=== PATIENT | female | born 1965 | race Caucasian/White ===

== ENCOUNTER 2016-11-03 19:58 | Emergency (ER) | payer OTHER ==
--- NOTE | 2016-11-04 02:38 | ED CLINICAL REPORT ---
Clinical Report - Physicians/Mid Levels [facility] [address] [place] [address] 11/03/2016 19:59 Patient: ROBERT ROMAN Time Seen: 20:57 Nov 03 2016. Arrived- By private vehicle. Historian- patient. CPT: ER phys charges level 5 plus (#[id number]). EKG interpretation (#[id number]). HISTORY OF PRESENT ILLNESS Chief Complaint: sent by due to hypokalemia. ABNORMAL POTASSIUM (2.1). This started today and is still present. At its maximum, severity described as severe. When seen in the E.D., severity described as severe. Modifying factors. Not worsened by anything. Not relieved by anything. The patient has had fatigue. Similar symptoms previously: None. Recent medical care: The patient was seen recently at another facility in the office. REVIEW OF SYSTEMS No fever, sore throat, sinus drainage, nasal congestion or cough. No difficulty breathing, chest pain, abdominal pain, nausea or vomiting. No diarrhea, black stools, bloody stools, difficulty with urination or skin rash. No back pain, headache or blackouts. No difficulty with ambulation. All systems otherwise negative, except as recorded above. PAST HISTORY Obesity. SAD. Diverticulitis. IBS. Pneumonia. Back Pain. Arthritis. Hypertension. ADDITIONAL SURGERIES: Bilateral ankle surgery-reconstruction. . Hernia Repair. Left finger surgery. Left surgery . Rotator Cuff Surgery. Shoulder Surgery. Tubal Ligation. Medications: Potassium Chloride Oral. Vitamin D Oral. Multi Vitamin Daily Oral. Metoprolol Tartrate Oral (Tablet 50 mg) 1 tablet, bid. Lasix Oral. Allergies: NSAIDs. SOCIAL HISTORY Never smoker. Occasional alcohol use. No drug use. ADDITIONAL NOTES The nursing notes have been reviewed. PHYSICAL EXAM Vital Signs: 11/03/2016 21:06 BP: 142/82. HR: 88. RR: 14. O2 saturation: 100%. Temp: 98.3 F. Pain level now: 0/10. Appearance: Alert. No acute distress. Eyes: Pupils equal, round and reactive to light. Eyes normal inspection. ENT: Ears normal. Nose normal. Pharynx normal. Neck: Normal inspection. Neck supple. CVS: Normal heart rate and rhythm. Heart sounds normal. Pulses normal. Respiratory: No respiratory distress. Breath sounds normal. Chest nontender. Abdomen: Soft and nontender. Bowel sounds normal. No mass. Back: Normal inspection. No CVA tenderness. Skin: Skin warm. Normal skin color. No rash. Extremities: Extremities exhibit normal ROM. No lower extremity edema. Neuro: Oriented X 3. No motor deficit. No sensory deficit. Reflexes normal. LABS, X-RAYS, AND EKG EKG: Normal sinus rhythm. Frequent unifocal wide-complex ectopic beats. Premature ventricular contractions. Normal P waves. Normal QRS complex. Non-specific ST segment / T wave abnormalities. Prior EKG unavailable. The study has been interpreted contemporaneously. The study has been independently viewed by me. The EKG appears to be a good tracing. Laboratory Tests: [id number]: (KISHORE: 11/04/2016 01:50) ( [facility] 11/04/2016 02:13) Final results Test Result Flag Units (Reference) POTASSIUM 2.6 #*L mmol/L (3.5-5.1) CRITICAL RESULTS CALLEDCalled to [facility] 11/04/16 0212Were 2 patient identifiers used? YWas the result read back? Y MAGNESIUM 2.6 H mg/dL (1.8-2.4) UA-Culture if indicated: (KISHORE: 11/03/2016 21:10) ( [facility] 11/[facility] 21:51) Final results Test Result Flag Units (Reference) URINE COLOR YELLOW URINE APPEARANCE CLEAR URINE GLUCOSE NEGATIVE (NEGATIVE) URINE BILIRUBIN NEGATIVE (NEGATIVE) URINE KETONE NEGATIVE (NEGATIVE) URINE SPECIFIC GRAVITY <= 1.005 L (1.010-1.030) URINE PH 6.0 (5.0-8.0) URINE PROTEIN NEGATIVE (NEGATIVE) URINE UROBILINOGEN 0.2 EU/dL (0.2-1.0) URINE NITRITE NEGATIVE (NEGATIVE) URINE BLOOD TRACE-LYSED (NEGATIVE) URINE LEUK ESTERASE NEGATIVE (NEGATIVE) URINE RBC RARE rbc/hpf (0-1) URINE WBC NONE SEEN wbc/hpf (0-1) URINE EPITHELIAL CELLS 1-3 EPI/hpf (0-5) URINE BACTERIA TRACE (<1+) (NONE SEEN) URINE COMMENT CULT NOT INDICATED URINE CULTURES ARE SET-UP BASED ON THE FOLLOWING CRITERIA:POSITIVE NITRITEPOSITIVE LEUKOCYTE ESTERASEGREATER THAN 10 WHITE BLOOD CELLSMODERATE (2+) OR GREATER BACTERIA CBC w Diff: (KISHORE: 11/03/2016 21:35) ( [facility] 11/03/2016 21:44) Final results Test Result Flag Units (Reference) WHITE BLOOD COUNT 10.9 K/uL (4.5-11.5) RED BLOOD COUNT 5.03 M/uL (4.00-5.20) HEMOGLOBIN 13.0 gm/dL (12.0-16.0) HEMATOCRIT 39.7 % (36.0-46.0) MEAN CELL VOLUME 79 L fL (80-100) MEAN CORPUSCULAR HGB 26 pg (26-34) MEAN CORPUSCULAR HGB CONC 33 g/dL (31-37) RED CELL DISTRIBUTION WIDTH 17.0 H % (11.6-14.8) PLATELET COUNT 340 K/uL (150-400) NEUTROPHIL % 67.3 % (50-75) LYMPH % 22.4 L % (25-40) MONO % 6.9 % (3-14) EOSINOPHIL % 2.4 % (0-4) BASOPHIL % 1.0 % (0-2) CMP: (KISHORE: 11/03/2016 21:35) ( [facility] 11/03/2016 22:17) Final results Test Result Flag Units (Reference) GLUCOSE 137 H mg/dL (70-110) BUN 24 H mg/dL (7-18) CREATININE 1.0 mg/dL (0.6-1.3) Estimated GFR >60 mL/min Estimated GFR- >60 mL/min Note: Persistent reduction over 3 months in eGFR<60 mL/min/1.73 m2 defines CKD. Patients with eGFR values>=60 mL/min/1.73 m2 may also have CKD if evidence ofpersistent proteinuria. Additional information may be foundat [email or web address].org. SODIUM 133 L mmol/L (136-145) POTASSIUM 1.8 *L mmol/L (3.5-5.1) CRITICAL RESULTS CALLEDCalled to MONET TABARES RN 11/03/16 2215Were 2 patient identifiers used? YWas the result read back? Y CHLORIDE 95 L mmol/L (98-107) CARBON DIOXIDE 33 H mmol/L (21-32) CALCIUM 9.2 mg/dL (8.5-10.1) TOTAL PROTEIN 7.3 g/dL (6.4-8.2) ALBUMIN 3.4 g/dL (3.3-5.0) BILIRUBIN, TOTAL 0.4 mg/dL (0.0-1.0) ALKALINE PHOSPHATASE 84 U/L (46-116) AST (SGOT) 46 H U/L (15-37) ALT (SGPT) 62 U/L (12-78) MAGNESIUM 1.7 L mg/dL (1.8-2.4) . PROGRESS AND PROCEDURES Course of Care: 23:17 11/03/16. Requesting her usual medications. Metoprolol 50 mg po Pt low on K+ due to diuretics. Discussed case with on-call health care provider, (Agustín: Recommends trying to replete KCL in ER and admit if it becomes difficult or prolonged.). Patient/family counseled. Disposition: Discharged. Condition: stable and improved. CLINICAL IMPRESSION Critical hypokalemia due to diuretics. Mildly low magnesium. INSTRUCTIONS (stop all diuretics for 3 days. Continue magnesium supplements.). Warnings: Further evaluation is necessary. GENERAL WARNINGS: Return or contact your physician immediately if your condition worsens or changes unexpectedly, if not improving as expected, or if other problems arise. Your Current Medications: STOP TAKING THE FOLLOWING MEDICATIONS: Lasix Oral. CONTINUE TAKING THE FOLLOWING MEDICATIONS: Metoprolol Tartrate Oral : Tablet 50 mg, 1 tablet bid. Multi Vitamin Daily Oral. Potassium Chloride Oral. Vitamin D Oral. Prescription Medications: KCL 20 meq po bid for a total of 5 doses. Follow-up: Follow up with your doctor Thursday in three days. Call for the next available appointment. Understanding of the discharge instructions verbalized by patient. (Electronically signed by Omar Pro MD 11/11/2016 0:10)
--- NOTE | 2016-11-04 02:38 | ED CLINICAL REPORT ---
Clinical Report - Physicians/Mid Levels [facility] [address] [place] [address] 11/03/2016 19:59 Patient: ROBERT ROMAN Time Seen: 20:57 Nov 03 2016. Arrived- By private vehicle. Historian- patient. CPT: ER phys charges level 5 plus (#[id number]). EKG interpretation (#[id number]). HISTORY OF PRESENT ILLNESS Chief Complaint: sent by due to hypokalemia. ABNORMAL POTASSIUM (2.1). This started today and is still present. At its maximum, severity described as severe. When seen in the E.D., severity described as severe. Modifying factors. Not worsened by anything. Not relieved by anything. The patient has had fatigue. Similar symptoms previously: None. Recent medical care: The patient was seen recently at another facility in the office. REVIEW OF SYSTEMS No fever, sore throat, sinus drainage, nasal congestion or cough. No difficulty breathing, chest pain, abdominal pain, nausea or vomiting. No diarrhea, black stools, bloody stools, difficulty with urination or skin rash. No back pain, headache or blackouts. No difficulty with ambulation. All systems otherwise negative, except as recorded above. PAST HISTORY Obesity. SAD. Diverticulitis. IBS. Pneumonia. Back Pain. Arthritis. Hypertension. ADDITIONAL SURGERIES: Bilateral ankle surgery-reconstruction. . Hernia Repair. Left finger surgery. Left surgery . Rotator Cuff Surgery. Shoulder Surgery. Tubal Ligation. Medications: Potassium Chloride Oral. Vitamin D Oral. Multi Vitamin Daily Oral. Metoprolol Tartrate Oral (Tablet 50 mg) 1 tablet, bid. Lasix Oral. Allergies: NSAIDs. SOCIAL HISTORY Never smoker. Occasional alcohol use. No drug use. ADDITIONAL NOTES The nursing notes have been reviewed. PHYSICAL EXAM Vital Signs: 11/03/2016 21:06 BP: 142/82. HR: 88. RR: 14. O2 saturation: 100%. Temp: 98.3 F. Pain level now: 0/10. Appearance: Alert. No acute distress. Eyes: Pupils equal, round and reactive to light. Eyes normal inspection. ENT: Ears normal. Nose normal. Pharynx normal. Neck: Normal inspection. Neck supple. CVS: Normal heart rate and rhythm. Heart sounds normal. Pulses normal. Respiratory: No respiratory distress. Breath sounds normal. Chest nontender. Abdomen: Soft and nontender. Bowel sounds normal. No mass. Back: Normal inspection. No CVA tenderness. Skin: Skin warm. Normal skin color. No rash. Extremities: Extremities exhibit normal ROM. No lower extremity edema. Neuro: Oriented X 3. No motor deficit. No sensory deficit. Reflexes normal. LABS, X-RAYS, AND EKG EKG: Normal sinus rhythm. Frequent unifocal wide-complex ectopic beats. Premature ventricular contractions. Normal P waves. Normal QRS complex. Non-specific ST segment / T wave abnormalities. Prior EKG unavailable. The study has been interpreted contemporaneously. The study has been independently viewed by me. The EKG appears to be a good tracing. Laboratory Tests: [id number]: (KISHORE: 11/04/2016 01:50) ( [facility] 11/04/2016 02:13) Final results Test Result Flag Units (Reference) POTASSIUM 2.6 #*L mmol/L (3.5-5.1) CRITICAL RESULTS CALLEDCalled to [facility] 11/04/16 0212Were 2 patient identifiers used? YWas the result read back? Y MAGNESIUM 2.6 H mg/dL (1.8-2.4) UA-Culture if indicated: (KISHORE: 11/03/2016 21:10) ( [facility] Final results Test Result Flag Units (Reference) URINE COLOR YELLOW URINE APPEARANCE CLEAR URINE GLUCOSE NEGATIVE (NEGATIVE) URINE BILIRUBIN NEGATIVE (NEGATIVE) URINE KETONE NEGATIVE (NEGATIVE) URINE SPECIFIC GRAVITY <= 1.005 L (1.010-1.030) URINE PH 6.0 (5.0-8.0) URINE PROTEIN NEGATIVE (NEGATIVE) URINE UROBILINOGEN 0.2 EU/dL (0.2-1.0) URINE NITRITE NEGATIVE (NEGATIVE) URINE BLOOD TRACE-LYSED (NEGATIVE) URINE LEUK ESTERASE NEGATIVE (NEGATIVE) URINE RBC RARE rbc/hpf (0-1) URINE WBC NONE SEEN wbc/hpf (0-1) URINE EPITHELIAL CELLS 1-3 EPI/hpf (0-5) URINE BACTERIA TRACE (<1+) (NONE SEEN) URINE COMMENT CULT NOT INDICATED URINE CULTURES ARE SET-UP BASED ON THE FOLLOWING CRITERIA:POSITIVE NITRITEPOSITIVE LEUKOCYTE ESTERASEGREATER THAN 10 WHITE BLOOD CELLSMODERATE (2+) OR GREATER BACTERIA CBC w Diff: (KISHORE: 11/03/2016 21:35) ( [facility] 21:44) Final results Test Result Flag Units (Reference) WHITE BLOOD COUNT 10.9 K/uL (4.5-11.5) RED BLOOD COUNT 5.03 M/uL (4.00-5.20) HEMOGLOBIN 13.0 gm/dL (12.0-16.0) HEMATOCRIT 39.7 % (36.0-46.0) MEAN CELL VOLUME 79 L fL (80-100) MEAN CORPUSCULAR HGB 26 pg (26-34) MEAN CORPUSCULAR HGB CONC 33 g/dL (31-37) RED CELL DISTRIBUTION WIDTH 17.0 H % (11.6-14.8) PLATELET COUNT 340 K/uL (150-400) NEUTROPHIL % 67.3 % (50-75) LYMPH % 22.4 L % (25-40) MONO % 6.9 % (3-14) EOSINOPHIL % 2.4 % (0-4) BASOPHIL % 1.0 % (0-2) CMP: (KISHORE: 11/03/2016 21:35) ( [facility] 22:17) Final results Test Result Flag Units (Reference) GLUCOSE 137 H mg/dL (70-110) BUN 24 H mg/dL (7-18) CREATININE 1.0 mg/dL (0.6-1.3) Estimated GFR >60 mL/min Estimated GFR- >60 mL/min Note: Persistent reduction over 3 months in eGFR<60 mL/min/1.73 m2 defines CKD. Patients with eGFR values>=60 mL/min/1.73 m2 may also have CKD if evidence ofpersistent proteinuria. Additional information may be foundat www.[email or web address].org. SODIUM 133 L mmol/L (136-145) POTASSIUM 1.8 *L mmol/L (3.5-5.1) CRITICAL RESULTS CALLEDCalled to MONET TABARES RN 11/03/16 2215Were 2 patient identifiers used? YWas the result read back? Y CHLORIDE 95 L mmol/L (98-107) CARBON DIOXIDE 33 H mmol/L (21-32) CALCIUM 9.2 mg/dL (8.5-10.1) TOTAL PROTEIN 7.3 g/dL (6.4-8.2) ALBUMIN 3.4 g/dL (3.3-5.0) BILIRUBIN, TOTAL 0.4 mg/dL (0.0-1.0) ALKALINE PHOSPHATASE 84 U/L (46-116) AST (SGOT) 46 H U/L (15-37) ALT (SGPT) 62 U/L (12-78) MAGNESIUM 1.7 L mg/dL (1.8-2.4) . PROGRESS AND PROCEDURES Course of Care: 23:17 11/03/16. Requesting her usual medications. Metoprolol 50 mg po Pt low on K+ due to diuretics. Discussed case with on-call health care provider, (Agustín: Recommends trying to replete KCL in ER and admit if it becomes difficult or prolonged.). Patient/family counseled. Disposition: Discharged. Condition: stable and improved. CLINICAL IMPRESSION Critical hypokalemia due to diuretics. Mildly low magnesium. INSTRUCTIONS (stop all diuretics for 3 days. Continue magnesium supplements.). Warnings: Further evaluation is necessary. GENERAL WARNINGS: Return or contact your physician immediately if your condition worsens or changes unexpectedly, if not improving as expected, or if other problems arise. Your Current Medications: STOP TAKING THE FOLLOWING MEDICATIONS: Lasix Oral. CONTINUE TAKING THE FOLLOWING MEDICATIONS: Metoprolol Tartrate Oral : Tablet 50 mg, 1 tablet bid. Multi Vitamin Daily Oral. Potassium Chloride Oral. Vitamin D Oral. Prescription Medications: KCL 20 meq po bid for a total of 5 doses. Follow-up: Follow up with your doctor Thursday in three days. Call for the next available appointment. Understanding of the discharge instructions verbalized by patient. (Electronically signed by Omar Pro MD 11/11/2016 0:10)
--- NOTE | 2016-11-04 02:39 | ED ORDER SUMMARY ---
..... Patient: ROBERT ROMAN OrderSheet [facility] VisitID: [id number] [address] [place] [address] 50y, F Registration Date/Time: 11/03/2016 ORDER SHEET Weight: 103.6 kg (stated) Allergies: NSAIDs GENERAL ORDERS: Pharmacy District Manager (Continuous) (21:37 11/03/2016 EHassan R.N. per protocol) (Ack 21:43 SRedmond) (21:54 EHassan R.N.) CBC w Diff Urgent (21:38 11/03/2016 EHassan R.N. per protocol) (Ack 21:43 SRedmond) (21:54 EHassan R.N.) CMP Urgent (21:38 11/03/2016 EHassan R.N. per protocol) (Ack 21:43 SRedmond) (21:54 EHassan R.N.) BMP Urgent (21:38 11/03/2016 EHassan R.N. per protocol) (Cancelled: Other21:43 Ambar SCHRADER) UA-Culture if indicated Urgent (21:38 11/03/2016 EHassan R.N. per protocol) (Ack 21:43 SRedmond) (21:54 EHassan R.N.) EKG - ER Stat (21:43 11/03/2016 Ambar SCHRADER) (Ack 21:44 SRedmond) (21:54 EHassan R.N.) Potassium Urgent (01:41 11/04/2016 RCollier R.N. written order Ambar SCHRADER) (Ack 1:43 SRedmond) (2:22 RCollier R.N.) MEDICATION ORDERS: - (KCL 20 meq po q 1 hour times 3 then check potassium level.) (22:31 11/03/2016 Ambar SCHRADER) (Ack 22:35 RCollier R.N.) (22:50 RCollier R.N.) Metoprolol PO 50 mg (NOW) (23:17 11/03/2016 Ambar SCHRADER) (23:19 RCollier R.N.) IV FLUIDS: IV Saline Lock (21:38 11/03/2016 EHassan R.N. per protocol) (21:38 Diya R.N.) Magnesium Sulfate IV 2 gm/50mL (NOW) (22:29 11/03/2016 Ambar SCHRADER) (Ack 22:35 RCollier R.N.) (22:53 RCollier R.N.) KCl IV 20 meq/100mL (Run no faster than 10 units/hr) (22:30 11/03/2016 Ambar SCHRADER) (Ack 22:35 RCollier R.N.) (22:54 RCollier R.N.) IV NS : initial bolus none -, then 50 mL/hr (NOW) (to run with Potassium) (02:39 11/04/2016 Clotilde R.NToña verbal order read back to Ambar SCHRADER) (2:41 RCollier R.N.) ORDER SHEET NOTES: [Electronically signed by Elvia Patricio R.N. (04:42 11/04/2016)] [Electronically signed by Omar Pro MD (00:10 11/11/2016)] [Electronically locked/signed by Elvia Patricio R.N. (04:42 11/04/2016)]
--- NOTE | 2016-11-04 02:39 | ED ORDER SUMMARY ---
..... Patient: ROBERT ROMAN OrderSheet [facility] VisitID: [id number] [address] [place] [address] 50y, F Registration Date/Time: 11/03/2016 ORDER SHEET Weight: 103.6 kg (stated) Allergies: NSAIDs GENERAL ORDERS: Sewing Machine Assembler (Continuous) (21:37 11/03/2016 EHassan R.N. per protocol) (Ack 21:43 SRedmond) (21:54 EHassan R.N.) CBC w Diff Urgent (21:38 11/03/2016 EHassan R.N. per protocol) (Ack 21:43 SRedmond) (21:54 EHassan R.N.) CMP Urgent (21:38 11/03/2016 EHassan R.N. per protocol) (Ack 21:43 SRedmond) (21:54 EHassan R.N.) BMP Urgent (21:38 11/03/2016 EHassan R.N. per protocol) (Cancelled: Other21:43 Ambar SCHRADER) UA-Culture if indicated Urgent (21:38 11/03/2016 EHassan R.N. per protocol) (Ack 21:43 SRedmond) (21:54 EHassan R.N.) EKG - ER Stat (21:43 11/03/2016 Ambar SCHRADER) (Ack 21:44 SRedmond) (21:54 EHassan R.N.) Potassium Urgent (01:41 11/04/2016 RCollier R.N. written order Ambar SCHRADER) (Ack 1:43 SRedmond) (2:22 RCollier R.N.) MEDICATION ORDERS: - (KCL 20 meq po q 1 hour times 3 then check potassium level.) (22:31 11/03/2016 Ambar SCHRADER) (Ack 22:35 RCollier R.N.) (22:50 RCollier R.N.) Metoprolol PO 50 mg (NOW) (23:17 11/03/2016 Ambar SCHRADER) (23:19 RCollier R.N.) IV FLUIDS: IV Saline Lock (21:38 11/03/2016 EHassan R.N. per protocol) (21:38 Diya R.N.) Magnesium Sulfate IV 2 gm/50mL (NOW) (22:29 11/03/2016 Ambar SCHRADER) (Ack 22:35 RCollier R.N.) (22:53 RCollier R.N.) KCl IV 20 meq/100mL (Run no faster than 10 units/hr) (22:30 11/03/2016 Ambar SCHRADER) (Ack 22:35 RCollier R.N.) (22:54 RCollier R.N.) IV NS : initial bolus none -, then 50 mL/hr (NOW) (to run with Potassium) (02:39 11/04/2016 Clotilde R.NToña verbal order read back to Ambar SCHRADER) (2:41 RCollier R.N.) ORDER SHEET NOTES: [Electronically signed by Elvia Patricio R.N. (04:42 11/04/2016)] [Electronically signed by Omar Pro MD (00:10 11/11/2016)] [Electronically locked/signed by Elvia Patricio R.N. (04:42 11/04/2016)]
--- NOTE | 2016-11-04 02:39 | ED NURSING NOTES ---
Clinical Report - Nurses [facility] [address] [place] [address] 11/03/2016 19:59 Patient: ROBERT ROMAN TRIAGE Triage time 2101 PM. Acuity: LEVEL 3. Chief Complaint: (Hypokalemia). Alert. No acute distress. SEPSIS SCREEN: Sepsis Screen. Negative (no infection suspected/documented). --21:24 Mechelle Arevalo R.N. 21:06 11/03/16. BP: 142/82. HR: 88. RR: 14. O2 saturation: 100% on room air. Temp: 98.3 F. Pain level now: 0/10. --21:24 Mechelle Arevalo R.N. Weight: 103.6 kg stated. Height/Length: 60 inches Per Patient. BMI: 44.6. --21:11 Mechelle Arevalo R.N. Medications Lasix Oral. --21:14 Mechelle Arevalo R.N. Metoprolol Tartrate Oral (Tablet 50 mg) 1 tablet, bid. --21:14 Mechelle Arevalo R.N. Multi Vitamin Daily Oral. --21:15 Mechelle Arevalo R.N. Vitamin D Oral. --21:15 Mechelle Arevalo R.N. Potassium Chloride Oral. --21:15 Mechelle Arevalo R.N. Allergies NSAIDs. --21:13 Mechelle Arevalo R.N. Medication/allergy information source: the patient. --21:24 Mechelle Arevalo R.N. History Arrived by private vehicle. Historian: patient. Accompanied by family. Primary physician (Dr. Friedman and Dr. Lee (PCP)). ( Pt was called by Dr. huynh today after a follow-up and was told to go to ED due to low potassium 2.1. Pt is on Lasixturned). This started today. Onset. (pt was called from clinic). She has had a cough. No fever, weakness, difficulty breathing or skin rash. Denies muscle aches. Treatment INSOLE PRESSER: None. PAST MEDICAL HX: Immunizations: up-to-date. Last normal menstrual period- . 2. Para 3. Sexual history - sexually active. No contraception. SOCIAL HX: Never smoker. Occasional alcohol use; consumes wine by the glass. No drug use. No infectious disease exposure. ABUSE ASSESSMENT: No report of abuse. SELF HARM ASSESSMENT: A self harm assessment was performed. The patient answered "no" to the question "Do you have thoughts of harming or killing yourself?" and "Have you recently had thoughts about harming or killing others?". FALL RISK ASSESSMENT: Fall risk assessment completed. No fall risk identified. NUTRITIONAL RISK ASSESSMENT: The nutritional risk assessment revealed no deficiencies. FUNCTIONAL ASSESSMENT: Functional assessment: no impairments noted. LEARNING NEEDS ASSESSMENT: The learning needs assessment revealed no barriers. SKIN INTEGRITY ASSESSMENT: Skin integrity risk assessment completed. No skin integrity risk identified. --21:24 Mechelle Arevalo R.N. PROBLEMS: Obesity. SAD. Diverticulitis. IBS. Pneumonia. Back Pain. Arthritis. Hypertension. --21:22 Mechelle Arevalo R.N. ADDITIONAL SURGERIES: Bilateral ankle surgery-reconstruction. . Hernia Repair. Left finger surgery. Left surgery . Rotator Cuff Surgery. Shoulder Surgery. --21:22 Mechelle Arevalo R.N. Tubal Ligation. --21:23 Mechelle Arevalo R.N. Interventions ID band on patient. --21:24 Mechelle Arevalo R.N. PHYSICAL ASSESSMENT Ambulatory to room. GENERAL / NEURO / PSYCH: Alert. Oriented X 4. Appears in no acute distress. HEENT: No facial asymmetry noted. Mucous membranes are pink. RESPIRATORY: Respirations not labored. Chest nontender. Breath sounds within normal limits. CVS: Normal sinus rhythm noted. Capillary refill less than 2 seconds. Pulses within normal limits. GI / : Abdomen soft and nontender and normal bowel sounds. SKIN: Skin intact. Skin is warm and dry. Normal skin turgor. --21:24 Mechelle Arevalo R.N. NURSING PROGRESS NOTES The initial plan of care for this patient has been created This plan of care was discussed with the patient. monitoring and evaluation advisor, pulse oximeter and NIBP monitor placed on patient. Patient gowned. Warming measures: blanket applied. Reassurance given. Two patient identifiers checked. Call light placed in reach. Side rails up x 1. Bed placed in lowest position. --21:24 Mechelle Arevalo R.N. Cardiac rhythm: normal sinus rhythm. --21:25 Mechelle Arevalo R.N. 21:24 11/03/16. BP: 157/91. HR: 91. RR: 14. O2 saturation: 98% on room air. Pain level now: 0/10. --21:25 Mechelle Arevalo R.N. 21:38 11/03/2016 Site #1 started via IV in the right antecubital space with an 20g angiocath; one attempt. Blood drawn: rainbow set. Labeled in the presence of the patient and sent to the lab. --21:38 Mechelle Arevalo R.N. EKG time: (2201 PM). EKG was ordered, performed by a tech and shown to the ED physician. --22:05 Geena David Critical value relayed to ED by Ruth. Critical value received by Amara BORREGO. K: 1.8. Critical value read back. Verified lab result. Provider notifed of critical value (Dr. Pro). Orders were not received. ED physician notified. --22:19 Amara Erwin R.N. 22:22 11/03/16. BP: 168/82. HR: 78. RR: 14. O2 saturation: 100%. Pain level now: 0/10. --22:23 Mechelle Arevalo R.N. Cardiac rhythm: normal sinus rhythm; frequent unifocal PVCs. monitoring and evaluation advisor, pulse oximeter and NIBP monitor placed on patient. Reassurance given. The patient is calm and resting quietly. Overall patient status is the same- she states feels the same. ( Pt resting, aware of possibly admission, K of 1.8, MD Pro aware.). GENERAL / NEURO / PSYCH: Denies headache. RESPIRATORY: Denies difficulty breathing. CVS: Denies chest pain. GI / : Denies nausea. SKIN: Skin is warm. Skin color within normal limits. Call light placed in reach. Care transferred and report given (Brian Gan). --22:23 Mechelle Arevalo R.N. 22:40 11/03/2016 POTASSIUM * PO 20mcq --22:50 Elvia Patricio R.N. 22:46 11/03/2016 Magnesium * IVPB 2mg in 50ml premixed bag. ran at rate of 25ml/hr in IV site #1 --22:54 Elvia Patricio R.N. 22:46 11/03/2016 Started 20 meq of KCL (Potassium Chloride) IVPB in bag #1 100 mL; at 50 mL/hr over 2 hour(s) via site #1 via IV pump. Allergies verified and confirmed 5 rights. IV patency established. IV site checked: no pain, redness, or swelling. IV flushed thoroughly pre- and post-medication administration. --22:54 Elvia Patricio R.N. 22:49 11/03/16. BP: 139/64. HR: 96. RR: 17. O2 saturation: 99%. --22:55 Elvia Patricio R.N. 23:19 11/03/2016 Metoprolol PO Tablets 50 mg given. Allergies verified and confirmed 5 rights. --23:19 Elvia Patricio R.N. 00:48 11/04/2016 Magnesium IVPB Discontinued: bag #1 completed. Total amount infused: 50 mL. IV patency established. IV site checked: no pain, redness, or swelling. IV flushed thoroughly. --00:48 Elvia Patricio R.N. 00:48 11/04/2016 KCL IVPB Discontinued: bag #1 completed. Total amount infused: 100 mL. IV patency established. IV site checked: no pain, redness, or swelling. IV flushed thoroughly. --00:48 Elvia Patricio R.N. 00:49 11/04/2016 Potassium * PO 20 meq --00:49 Elvia Patricio R.N. 01:40 11/04/2016 Potassium * PO 20 meq --01:40 Elvia Patricio R.N. ( pt ambulates to restroom.). --01:40 Elvia Patricio R.N. DISPOSITION / DISCHARGE 02:38 11/04/16. BP: 107/63. HR: 82. RR: 15. O2 saturation: 99% on room air. Pain level now: 0/10. --02:39 Elvia Patricio R.N. 23:00 11/03/2016 Started bag #1 500 mL IV Fluids IV NS (Saline); at 50 mL/hr over 2 hour(s) via site #1 via IV pump. Allergies verified and confirmed 5 rights. IV patency established. IV site checked: no pain, redness, or swelling. IV flushed thoroughly pre- and post-medication administration. --02:41 Elvia Patricio R.N. 01:00 11/04/2016 IV Fluids IV NS Discontinued: bag #1 STOPPED. Total amount infused: 100 mL. IV patency established. IV site checked: no pain, redness, or swelling. IV flushed thoroughly. --02:41 Elvia Patricio R.N. 02:50. Condition at departure: improved and stable. No learning barriers present. Discharge instructions provided and reviewed with the patient. Reviewed medication(s) side effects, precautions, dosing and course information. Prescription(s) given to the patient. Patient verbalized understanding. Written instructions provided in [place]. The patient was discharged home. She left the Emergency Department ambulatory and via private vehicle. Family member driving. --04:42 Elvia Patricio R.N. Locked/Released at 11/04/2016 4:42 by Elvia Patricio R.N.
--- NOTE | 2016-11-11 00:11 | ED MAR SUMMARY ---
..... Medication Administration Record [facility] [address] [place], [place] [address] Patient: ROBERT ROMAN Visit ID: [id number] 50y, F Weight: 103.6 kg Height/Length: 60 in BMI: 44.6 ALLERGIES: NSAIDs Given 22:40 11/03/2016 Elvia Patricio R.N. Medication Administered: POTASSIUM *, Dose: 20mcq * PO. Medication Ordered: - (KCL 20 meq po q 1 hour times 3 then check potassium level.). Start 22:46 11/03/2016 Elvia Patricio R.N., Stop 00:48 11/04/2016 Elvia Patricio R.N. Medication Administered: Magnesium *, Dose: 2mg * IVPB. Medication Ordered: Magnesium Sulfate IV 2 gm/50mL (NOW). Start 22:46 11/03/2016 Elvia Patricio R.N., Stop 00:48 11/04/2016 Elvia Patricio R.N. Medication Administered: KCL [IVPB] (POTASSIUM CHLORIDE), Dose: 20 meq IVPB over 2 hour(s), Rate: 50 mL/hr, Dispensed: 100 mL bag, Site: #1 right AC. Medication Ordered: KCl IV 20 meq/100mL (Run no faster than 10 units/hr). Start 23:00 11/03/2016 Elvia Patricio R.N., Stop 01:00 11/04/2016 Elvia Patricio R.N. Medication Administered: IV NS (SALINE), Dose: IV Fluids over 2 hour(s), Rate: 50 mL/hr, Dispensed: 500 mL bag, Site: #1 right AC. Medication Ordered: IV NS : initial bolus none -, then 50 mL/hr (NOW) (to run with Potassium). Given 23:19 11/03/2016 Elvia Patricio R.N. Medication Administered: METOPROLOL [PO], Dose: 50 mg Tablets PO. Medication Ordered: Metoprolol PO 50 mg (NOW). Given 00:49 11/04/2016 Elvia Patricio R.N. Medication Administered: Potassium *, Dose: 20 meq * PO. Medication Ordered: - (KCL 20 meq po q 1 hour times 3 then check potassium level.). Given 01:40 11/04/2016 Elvia Patricio R.N. Medication Administered: Potassium *, Dose: 20 meq * PO. Medication Ordered: - (KCL 20 meq po q 1 hour times 3 then check potassium level.).
--- NOTE | 2016-11-11 00:11 | ED DISCHARGE INSTRUCTIONS ---
Patient: ROBERT ROMAN General Instructions [facility] VisitID: [id number] [address] [place] [address] 50y, F Registration Date/Time: 11/03/2016 Critical hypokalemia due to diuretics. Mildly low magnesium. INSTRUCTIONS (stop all diuretics for 3 days. Continue magnesium supplements.). Warnings: Further evaluation is necessary. GENERAL WARNINGS: Return or contact your physician immediately if your condition worsens or changes unexpectedly, if not improving as expected, or if other problems arise. Your Current Medications: STOP TAKING THE FOLLOWING MEDICATIONS: Lasix Oral. CONTINUE TAKING THE FOLLOWING MEDICATIONS: Metoprolol Tartrate Oral : Tablet 50 mg, 1 tablet bid. Multi Vitamin Daily Oral. Potassium Chloride Oral. Vitamin D Oral. Prescription Medications: KCL 20 meq po bid for a total of 5 doses. Follow-up: Follow up with your doctor Thursday in three days. Call for the next available appointment. Understanding of the discharge instructions verbalized by patient. (Electronically signed by Omar Pro MD 11/11/2016 0:10)
--- NOTE | 2016-11-11 00:11 | ED DISCHARGE INSTRUCTIONS ---
Patient: ROBERT ROMAN General Instructions [facility] VisitID: [id number] [address] [place] [address] 50y, F Registration Date/Time: 11/03/2016 Critical hypokalemia due to diuretics. Mildly low magnesium. INSTRUCTIONS (stop all diuretics for 3 days. Continue magnesium supplements.). Warnings: Further evaluation is necessary. GENERAL WARNINGS: Return or contact your physician immediately if your condition worsens or changes unexpectedly, if not improving as expected, or if other problems arise. Your Current Medications: STOP TAKING THE FOLLOWING MEDICATIONS: Lasix Oral. CONTINUE TAKING THE FOLLOWING MEDICATIONS: Metoprolol Tartrate Oral : Tablet 50 mg, 1 tablet bid. Multi Vitamin Daily Oral. Potassium Chloride Oral. Vitamin D Oral. Prescription Medications: KCL 20 meq po bid for a total of 5 doses. Follow-up: Follow up with your doctor Thursday in three days. Call for the next available appointment. Understanding of the discharge instructions verbalized by patient. (Electronically signed by Omar Pro MD 11/11/2016 0:10)
--- NOTE | 2016-11-11 00:11 | ED MAR SUMMARY ---
..... Medication Administration Record [facility] [address] [place] [address] Patient: ROBERT ROMAN Visit ID: [id number] 50y, F Weight: 103.6 kg Height/Length: 60 in BMI: 44.6 ALLERGIES: NSAIDs Given 22:40 11/03/2016 Elvia Patricio R.N. Medication Administered: POTASSIUM *, Dose: 20mcq * PO. Medication Ordered: - (KCL 20 meq po q 1 hour times 3 then check potassium level.). Start 22:46 11/03/2016 Elvia Patricio R.N., Stop 00:48 11/04/2016 Elvia Patricio R.N. Medication Administered: Magnesium *, Dose: 2mg * IVPB. Medication Ordered: Magnesium Sulfate IV 2 gm/50mL (NOW). Start 22:46 11/03/2016 Elvia Patricio R.N., Stop 00:48 11/04/2016 Elvia Patricio R.N. Medication Administered: KCL [IVPB] (POTASSIUM CHLORIDE), Dose: 20 meq IVPB over 2 hour(s), Rate: 50 mL/hr, Dispensed: 100 mL bag, Site: #1 right AC. Medication Ordered: KCl IV 20 meq/100mL (Run no faster than 10 units/hr). Start 23:00 11/03/2016 Elvia Patricio R.N., Stop 01:00 11/04/2016 Elvia Patricio R.N. Medication Administered: IV NS (SALINE), Dose: IV Fluids over 2 hour(s), Rate: 50 mL/hr, Dispensed: 500 mL bag, Site: #1 right AC. Medication Ordered: IV NS : initial bolus none -, then 50 mL/hr (NOW) (to run with Potassium). Given 23:19 11/03/2016 Elvia Patricio R.N. Medication Administered: METOPROLOL [PO], Dose: 50 mg Tablets PO. Medication Ordered: Metoprolol PO 50 mg (NOW). Given 00:49 11/04/2016 Elvia Patricio R.N. Medication Administered: Potassium *, Dose: 20 meq * PO. Medication Ordered: - (KCL 20 meq po q 1 hour times 3 then check potassium level.). Given 01:40 11/04/2016 Elvia Patricio R.N. Medication Administered: Potassium *, Dose: 20 meq * PO. Medication Ordered: - (KCL 20 meq po q 1 hour times 3 then check potassium level.).
--- NOTE | 2016-11-11 00:11 | ED MED RECONCILIATION SUMMARY ---
Patient: ROBERT ROMAN Medication Reconciliation Report [facility] VisitID: [id number] [address] [place] [address] 50y, F Registration Date/Time: 11/03/2016 Weight: 103.6 kg Height/Length: 60 in. BMI: 44.6 ALLERGIES: NSAIDs The patient's Home Medications are listed below: STOP TAKING THE FOLLOWING MEDICATIONS: Lasix Oral CONTINUE TAKING THE FOLLOWING MEDICATIONS: Metoprolol Tartrate Oral (50 mg) 1 tablet, bid Multi Vitamin Daily Oral Potassium Chloride Oral Vitamin D Oral The source(s) of the original Home Medication information: patient The following Medications were given to the patient in the Emergency Department: POTASSIUM PO 20mcq, administered: 11/03/2016 10:40:00 PM Magnesium IVPB bolus 0, then 2mg, administered: 11/03/2016 10:46:00 PM KCL [IVPB] IVPB bolus 0, then 20 meq 50 mL/hr, administered: 11/03/2016 10:46:00 PM Metoprolol [PO] PO 50 mg, administered: 11/03/2016 11:19:00 PM Potassium PO 20 meq, administered: 11/04/2016 12:49:00 AM Potassium PO 20 meq, administered: 11/04/2016 1:40:00 AM IV NS IV Fluids bolus 0, then 50 mL/hr, administered: 11/03/2016 11:00:00 PM The following Medications were prescribed to the patient: KCL 20 meq po bid for a total of 5 doses. -- Omar Pro MD
--- NOTE | 2016-11-11 00:11 | ED MED RECONCILIATION SUMMARY ---
Patient: ROBERT ROMAN Medication Reconciliation Report [facility] VisitID: [id number] [address] [place] [address] 50y, F Registration Date/Time: 11/03/2016 Weight: 103.6 kg Height/Length: 60 in. BMI: 44.6 ALLERGIES: NSAIDs The patient's Home Medications are listed below: STOP TAKING THE FOLLOWING MEDICATIONS: Lasix Oral CONTINUE TAKING THE FOLLOWING MEDICATIONS: Metoprolol Tartrate Oral (50 mg) 1 tablet, bid Multi Vitamin Daily Oral Potassium Chloride Oral Vitamin D Oral The source(s) of the original Home Medication information: patient The following Medications were given to the patient in the Emergency Department: POTASSIUM PO 20mcq, administered: 11/03/2016 10:40:00 PM Magnesium IVPB bolus 0, then 2mg, administered: 11/03/2016 10:46:00 PM KCL [IVPB] IVPB bolus 0, then 20 meq 50 mL/hr, administered: 11/03/2016 10:46:00 PM Metoprolol [PO] PO 50 mg, administered: 11/03/2016 11:19:00 PM Potassium PO 20 meq, administered: 11/04/2016 12:49:00 AM Potassium PO 20 meq, administered: 11/04/2016 1:40:00 AM IV NS IV Fluids bolus 0, then 50 mL/hr, administered: 11/03/2016 11:00:00 PM The following Medications were prescribed to the patient: KCL 20 meq po bid for a total of 5 doses. -- Omar Pro MD
== END 2016-11-04 02:50 | disposition home or self-care (01) ==
LOC: ED SRH 19:58
DX: E87.6 Hypokalemia (principal); E83.42 Hypomagnesemia; T50.1X5A Adverse effect of loop [high-ceiling] diuretics, initial encounter; I10 Essential (primary) hypertension; Z79.899 Other long term (current) drug therapy; Z88.6 Allergy status to analgesic agent
CPT/HCPCS: 90004; 90047; 90100; 92720; 92750; 95059